=== PATIENT | female | born 2000 | race Caucasian/White ===

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

== ENCOUNTER → 2020-06-14 | Outpatient (CLI) | payer BC ==
[2020-06-14 09:51] LABS: Basophils % (A) 1 %; Eosinophils # (A) 0.1 k/uL (0-0.7); Eosinophils % (A) 1 %; HCT 40.6 % (34.0-46.0); HGB 13.4 gm/dL (11.4-16.0); Lymphocytes # (A) 1.8 k/uL (1.0-4.8); Lymphocytes % (A) 38 %; MCH 32.7 pg (25.0-35.0); MCHC 33.1 g/dL (31.0-37.0); MCV 98.8 fL (80.0-100.0); Mean Platelet Volume 8.3; Monocytes # (A) 0.2 k/uL (0-1.0); Monocytes % (A) 4 %; Neutrophils # (A) 2.6 k/uL (1.3-7.7); Neutrophils % (A) 55 %; Platelet Count 196 k/uL (150-450); RBC 4.11 m/uL (3.80-5.40); RDW 12.1 % (11.5-15.5); WBC 4.7 k/uL (4.0-11.0)
[2020-06-14 16:52] LABS: ALT 16 U/L (8-44); AST 22 U/L (13-35); African American GFR (CKD) 107.4 (60.0-200.0); Albumin/Globulin Ratio 2.35 (1.60-3.17); Alkaline Phosphatase 49 U/L (41-126); BUN/Creat Ratio 11.11 Ratio (12.00-20.00); C Reactive Protein <0.4 mg/dL (0.0-0.8); Calcium 9.5 mg/dL (8.7-10.3); Carbon Dioxide 27.5 mmol/L (21.6-31.8); Chloride 106 mmol/L (96-109); Chol/HDL Ratio 2.63; Cholesterol 213 mg/dL (0-200); Glucose 83 mg/dL (70-110); LDL Cholesterol,Calculated 119.2 mg/dL (0.0-131.0); Non-African American GFR(CKD) 92.7 (60.0-200.0); Potassium 3.9 mmol/L (3.5-5.5); Sodium 141 mmol/L (135-145); Total Bilirubin 0.7 mg/dL (0.3-1.2); Total Protein 6.7 g/dL (6.2-8.2)
[2020-06-14 17:27] LABS: Cardiolipin Ab IgG Interp NEGATIVE (NEGATIVE); Cardiolipin Ab IgM Interp NEGATIVE (NEGATIVE); Cardiolipin IgA Antibody 0.6 U/mL; Cardiolipin IgM Antibody 0.4 U/mL
[2020-06-14 18:16] LABS: Erythrocyte Sedimentation Rate 9 mm/Hr (0-20)
[2020-06-15 11:39] LABS: APTT 39 Sec(s) (<43); Dilute Russell Viper Venom 39 Sec(s) (<44)
[2020-06-16 12:09] LABS: Anti-Thrombin III Activity 106 % (79-109)
== END | disposition home or self-care (01) ==
LOC: LABWHC1 08:19
PROVIDERS: ATTEND Family Medicine
DX: G43.909 Migraine, unspecified, not intractable, without status migrainosus (principal); H53.129 Transient visual loss, unspecified eye; R47.1 Dysarthria and anarthria; Z30.41 Encounter for surveillance of contraceptive pills; Z82.49 Family history of ischemic heart disease and other diseases of the circulatory system; G83.21 Monoplegia of upper limb affecting right dominant side
CPT/HCPCS: 36415; 80053; 80061; 82103; 82607; 83090; 84443; 85025; 85300; 85613; 85652; 85730; 86140; 86147

== ENCOUNTER → 2021-06-18 | Outpatient (CLI) | payer BC ==
[2021-06-18 10:18] VITALS: BP 103/70; PULSE 63; RESP 18; TEMP 98.4
--- NOTE | 2021-06-18 10:26 | P.CONS ---
History of Present Illness - Reason for Consult Consult date: 06/18/21 - Chief Complaint Headache - History of Present Illness This is a 20-year-old lady with history of chronic episodic headaches. The pain is mostly behind her right I. It feels like throbbing pain. The patient gets this pain she reports having photophobia and nausea and vomiting. The patient has been happening on a daily basis until she was prescribed Topamax and Inderal and right now she gets that to once every 2 weeks. She also uses Imitrex orally with acute episode. She feels mild pain in the neck and shoulders and in the occipital area occasionally. The patient was referred to us by Dr. Hilton for a trial of occipital nerve block on the right side. Past Medical History Past Medical History: No Reported History Additional Past Medical History / Comment(s): MIGRAINES History of Any Multi-Drug Resistant Organisms: None Reported Past Surgical History: No Surgical Hx Reported Additional Past Surgical History / Comment(s): ORAL SX Past Anesthesia/Blood Transfusion Reactions: Family History of Problems w/ Anesthesia Additional Past Anesthesia/Blood Transfusion Reaction / Comm: DAD HAD PONV Smoking Status: Never smoker - Past Family History Father Family Medical History: Cancer, Pulmonary Embolus Medications and Allergies Home Medications Medication Instructions Recorded Confirmed Type Propranolol [Inderal] 40 mg PO DAILY 06/13/21 06/13/21 History Topiramate [Topamax] 25 mg PO HS 06/13/21 06/13/21 History Allergies Allergy/AdvReac Type Severity Reaction Status Date / Time Penicillins Allergy Rash/Hives Verified 06/13/21 11:13 Physical Exam Vitals: Vital Signs Temp Pulse Resp BP Pulse Ox 06/18/21 10:02 98.4 F 63 18 103/70 96 - Constitutional General appearance: average body habitus - EENT Eyes: PERRLA - Integumentary Integumentary: no calor, no cellulitis, no cyanotic, no decreased turgor, no flushed, no jaundiced, no normal, no normal turgor, no pale, no rash, no ulcer - Neurologic The patient has normal strength in the upper extremities bilaterally Mild tenderness in the trapezius muscle bilaterally in the cervical paravertebral musculature bilaterally Mild tenderness in the occipital area most of the right side Neurologic: CNII-XII intact - Musculoskeletal Musculoskeletal: gait normal, strength equal bilaterally - Psychiatric Psychiatric: A&O x's 3, appropriate affect, intact judgment & insight Results Results: The findings on brain computed tomography scan and brain CT angiography. Assessment and Plan Plan: This is a 20-year-old female with migraine headache and possible occipital neurology on the right side. The patient will be scheduled to have a trial of occipital nerve block on the right side however I think her treatment should be mostly medical by increasing the dose of her Topamax and probably Inderal. The medical management will be by Dr. Hilton. The procedure was explained to the patient and her mother and her questions were answered. I thank Dr. Hilton for the referral.
== END | disposition home or self-care (01) ==
LOC: PNWHC3 09:52
PROVIDERS: ATTEND Anesthesiology
DX: G43.909 Migraine, unspecified, not intractable, without status migrainosus (principal); Z88.0 Allergy status to penicillin; Z79.899 Other long term (current) drug therapy
CPT/HCPCS: 99211

== ENCOUNTER 2021-07-10 07:10 | Day surgery (SDC) | payer BC ==
[~2021-07-10 07:10] MED LIST: LACTATED RINGERS 1,000 ML IV SCH
[2021-07-10 07:42] VITALS: TEMP 97.5
[2021-07-10] MEDS ORDERED: LIDOCAINE 1% (10MG/ML) FOR IV START INTRADERMA ONE (07:49)
[2021-07-10] MEDS ORDERED: MIDAZOLAM 2 MG/2 ML VIAL ONE (08:03)
[2021-07-10] MEDS ORDERED: fentaNYL (PF) 50 MCG/ML 2 ML AMP ONE (08:03)
[2021-07-10] MEDS ORDERED: methylPREDNISolone ACETATE 40 MG/ML 1 ML VIAL ONE (08:03)
[2021-07-10] MEDS ORDERED: ROPIVACAINE 5MG/ML 20ML VIAL ONE (08:03)
--- NOTE | 2021-07-10 08:12 | P.PCN ---
Date of Procedure: 07/10/21 Procedure(s) Performed: Preoperative diagnoses= 1- Right Greater occipital neuralgia Postoperative diagnoses= same as preoperative diagnosis. Procedure= Right Greater occipital nerve block Anesthesia= moderate sedation with Versed 2 mg and fentanyl 50 micrograms . Estimated blood loss=minimal. Procedure indication= the patient had a history of severe chronic neck pain ,and headache, diagnosed with occipital neuralgia exam was positive for severe tenderness over the occipital nerve bilaterally, she will be a good candidate occipital nerve block, patient failed conservative management Procedure description= the patient was seen and identified in the preoperative holding area, risks and benefits and alternative of the procedure and possible complications discussed with the patient, and he agreed with the preceding, patient signed the consent, an IV was started, and vital signs were monitored and were stable throughout the procedure, patient was placed in the sitting position or table and the neck area was prepped and draped with a sterile fashion, vital signs were closely monitored during the procedure, 25-gauge needle advanced 1 inch lateral to the occipital protuberance on the right side, at the location of the right occipital nerve , then after negative aspiration for heme and CSF and there was no paresthesia during the injection, 6 ml of Robivacaine 0.5% and 80 mg of Depo-Medrol injected after negative aspiration, the needle removed. Patient tolerated the procedure well without any complication, The patient returned to supine position after the back was cleaned and a Band- Aid applied, the patient transported to recovery room in stable condition and he was monitored for 30 minutes before he was discharged home and then patient was reexamined before going home and patient was discharged in stable condition and patient will follow up with the pain clinic in a few weeks.
[2021-07-10 08:28] VITALS: RESP 20
[2021-07-10 08:36] VITALS: BP 114/67; PULSE 49
== END 2021-07-10 08:38 | disposition home or self-care (01) ==
LOC: ORPAIN 07:10
PROVIDERS: ATTEND Specialist
DX: M54.81 Occipital neuralgia (principal)
CPT/HCPCS: 64405; 81025; J2250; J1030; J3010; J2795

== ENCOUNTER → 2021-11-07 | Outpatient (CLI) | payer BC ==
[2021-11-07 11:47] VITALS: BP 131/97; PULSE 71; RESP 18; TEMP 98.3
--- NOTE | 2021-11-07 12:22 | P.PAINPG ---
Subjective Progress Note Date: 11/07/21 Principal diagnosis: Headaches Ms. Richardson is a 21 -year-old pleasant female came to the [facility] pain clinic for postprocedure evaluation . Patient has ongoing pain for many years. Patient had right occipital nerve block on 07/10/2021 patient had 100% pain relief with no headaches after the procedure. Patient describes pain is aching, throbbing type of pain. Patient rated pain levels are 0 out of 10 in severity. Activities making pain worse sometimes. Medications, resting, intervention procedures helping in relieving patient's pain. Patient pain some days better than others. Overall activities decreased secondary to headaches but after the intervention procedure she has no such issues with her activities. Denied any side effects with the medications. Denied any bowel or bladder problems at this time. Patient is using wheelchair as a shunt had a recent bunionectomy surgery on her right foot. Patient denies any suicidal or homicidal ideations intent or plan. Patient denies any auditory or visual hallucinations. Patient denied any red flag symptoms related to pain. Objective - Vital Signs Vital signs: Vital Signs Temp 98.3 F 11/07/21 11:33 Pulse 71 11/07/21 11:33 Resp 18 11/07/21 11:33 BP 131/97 11/07/21 11:33 Pulse Ox 97 11/07/21 11:33 - Exam General: Well-developed, well-nourished, no acute distress HEENT: Normocephalic, and atraumatic Neck: Supple, no neck swelling Psychiatric: Appropriate mood, and affect [employer]: No focal neurological deficits Musculoskeletal: Upper extremity: Normal strength, and range of motion. Sensation grossly intact Lower extremity: Normal strength, sitting in wheelchair secondary to recent surgery on her bunion - Constitutional Constitutional Comment(s): 13 point review of symptoms negative except as mentioned in history of present illness Assessment and Plan Assessment: Right-sided occipital neuralgia Plan: #1 Diagnoses, prognosis, and multiple treatment options including but not limited to physical therapy, interventional therapy, adjunct medication therapy, narcotic medication, and surgical options were discussed with the patient. And all questions were answered to the patient's satisfaction. #2 treatment plan agreement : Patient was thoroughly discussed regarding the treatment options, alternatives, and importance of exercises as tolerated. Patient clearly understood. #3 Patient was counseled on importance of regular exercise. Including elo chi, aerobic exercises as tolerated. Which helps for chronic pain, and overall well- being. #4 investigations: MAPS- reviewed , urine drug test-not done #5 diagnostic tests: None #6 consultation : None # 7 interventional procedures: Right occipital nerve block as needed in future. Procedure, complications, alternatives discussed with the patient. #8 medications None from the pain clinic # 9 recommended to use TENS unit's as needed #10 disposition: scheduled to follow up with pain clinic as needed Time with Patient: Less than 30 PQRS Measure Charge Sheet Measure #130: Documentation of Current Meds in Medical Chart: Patient's medications documented in chart Measure #226: Tobacco Use: Screen & Cessation Intervention: Pt not a tobacco user Measure #111: Pneumonia Vaccination: Pneumococcal vaccine NOT administered or previously given Measure #47: Advance Care Plan: Advance care planning discussed & documented, pt chose/unable to give Measure #412: Opioid Treatment Agreement: No documentation of signed opioid treatment agreement Measure #408: Opioid Therapy Follow-up Evaluation: Patient had NO f/u eval minimum every 3 months during opioid therapy Measure #317: Preventitive Care & Scrn High Bld Press & F/U: Normal blood pressure, f/u not required Measure #128: Body Mass Index (BMI) Screening & Follow-up: BMI documented within normal parameters Measure #131: Pain Assessment & Follow-up: Pain positive & plan documented Measure #431: Unhealthy Alcohol Use Preventative Care & Scrn: Patient not identified as an unhealthy alcohol user Mode of Arrival: Ambulatory, Wheelchair - Pain Location Occipital Non-Pharmacological Interventions: Ice, Inactivity Pharmacological Interventions: Block, Medication PQRS Narrative: Smoking Status Never smoker Blood Pressure 131/97 Pain Intensity [Occipital] 0 Scale Used Numeric (1 - 10) Hx Alcohol Use (MH) No Home Medications: Ambulatory Orders SUMAtriptan succinate [Imitrex] 25 mg PO DIRECTED PRN 07/06/21 Controlled Substance Measures - Controlled Substance Measures Is patient prescribed a controlled substance at discharge?: No
== END | disposition home or self-care (01) ==
LOC: PNWHC3 11:20
DX: M54.81 Occipital neuralgia (principal)
CPT/HCPCS: 99211

== ENCOUNTER → 2023-11-03 | Outpatient (CLI) | payer BC ==
--- NOTE | 2023-11-03 09:37 | USB ---
Reason for Exam: Clinical finding. Findings: The whole breast of the right breast, the periareolar of the right breast, the axilla of the right breast and the retroareolar of the right breast were scanned. A complete US of all four quadrants of the breast , axilla, and retro-areolar region were reviewed. No solid or cystic masses are identified. Dense tissue is present throughout. No duct ectasia or axillary lymphadenopathy. Overall Assessment: Negative, BI-RAD 1 Management: Screening Mammogram of both breasts at age 40. Unless there is a clinical indication to start sooner. Further clinical management of patient's intermittent right-sided nipple inversion. A clinical breast exam by your physician is recommended on an annual basis and results should be correlated with mammographic findings. This exam should not preclude additional follow-up of suspicious palpable abnormalities. Results were given to the patient verbally at the time of exam. Electronically signed and approved by: Trent Munguia M.D. Radiologist
== END | disposition home or self-care (01) ==
LOC: RADUSWWP 08:58
PROVIDERS: ATTEND Family Medicine
DX: N64.53 Retraction of nipple (principal)

== ENCOUNTER 2024-01-11 10:23 | Emergency (ER) | payer BC ==
[2024-01-11] MEDS: SODIUM CHLORIDE 0.9% 1,000 ML IV STA (11:06)
[2024-01-11 11:22] LABS: Basophils # (A) 0.1 k/uL (0-0.2); Basophils % (A) 0 %; Eosinophils # (A) 0.2 k/uL (0-0.7); Eosinophils % (A) 1 %; HCT 49.6 % (34.0-46.0); HGB 16.6 gm/dL (11.4-16.0); Lymphocytes # (A) 0.9 k/uL (1.0-4.8); Lymphocytes % (A) 4 %; MCHC 33.6 g/dL (31.0-37.0); MCV 92.4 fL (80.0-100.0); Mean Platelet Volume 8.8; Monocytes # (A) 0.6 k/uL (0-1.0); Monocytes % (A) 3 %; Neutrophils # (A) 19.8 k/uL (1.3-7.7); Neutrophils % (A) 92 %; Platelet Count 214 k/uL (150-450); RBC 5.37 m/uL (3.80-5.40); RDW 13.1 % (11.5-15.5); WBC 21.7 k/uL (3.8-10.6)
--- NOTE | 2024-01-11 11:34 | ED ---
Abdominal Pain HPI - General Chief Complaint: Abdominal Pain Stated Complaint: abd pain Time Seen by Provider: 01/11/24 10:35 Source: patient, RN notes reviewed Mode of arrival: ambulatory Limitations: no limitations - History of Present Illness Initial Comments: This is a 23-year-old female who presents to the emergency department for abdominal pain. States that she woke up with this around 3 AM. It is primarily in the middle to upper abdomen, worse on the right side. She has associated nausea, vomiting, and diarrhea. Denies any urinary symptoms. Also denies any history of similar pains in the past. Pain does not radiate anywhere. Denies any fevers or chills. MD Complaint: abdominal pain - Related Data Home Medications Medication Instructions Recorded Confirmed SUMAtriptan succinate [Imitrex] 25 mg PO DIRECTED PRN 07/06/21 11/02/21 Previous Rx's Medication Instructions Recorded Ketorolac [Toradol] 10 mg PO Q6HR PRN #15 tab 01/11/24 Ondansetron Odt [Zofran Odt] 4 mg PO Q8HR PRN #20 tab 01/11/24 Allergies Allergy/AdvReac Type Severity Reaction Status Date / Time Penicillins Allergy Rash/Hives Verified 01/11/24 10:28 Review of Systems ROS Statement: Those systems with pertinent positive or pertinent negative responses have been documented in the HPI. ROS Other: All systems not noted in ROS Statement are negative. Past Medical History Past Medical History: No Reported History Additional Past Medical History / Comment(s): MIGRAINES History of Any Multi-Drug Resistant Organisms: None Reported Past Surgical History: No Surgical Hx Reported Additional Past Surgical History / Comment(s): ORAL SX. PAIN CLINIC PROCEDURES. HAVING RT FOOT BUNIONECTOMY 11/05/21 Past Anesthesia/Blood Transfusion Reactions: Family History of Problems w/ Anesthesia Additional Past Anesthesia/Blood Transfusion Reaction / Comment(s): DAD HAD PONV Past Psychological History: No Psychological Hx Reported Smoking Status: Never smoker Past Alcohol Use History: Occasional Past Drug Use History: None Reported - Past Family History Father Family Medical History: Cancer, Pulmonary Embolus General Exam Limitations: no limitations General appearance: alert, in no apparent distress Head exam: Present: atraumatic, normocephalic, normal inspection Respiratory exam: Present: normal lung sounds bilaterally. Absent: respiratory distress, wheezes, rales, rhonchi, stridor Cardiovascular Exam: Present: regular rate, normal rhythm, normal heart sounds. Absent: systolic murmur, diastolic murmur, rubs, gallop, clicks GI/Abdominal exam: Present: soft, tenderness (RUQ). Absent: distended Neurological exam: Present: alert, oriented X3, CN II-XII intact Psychiatric exam: Present: normal affect, normal mood Skin exam: Present: warm, dry, intact, normal color. Absent: rash Course Vital Signs 01/11/24 01/11/24 01/11/24 10:26 11:09 12:02 Temperature 98.4 F 98.1 F Pulse Rate 118 H 87 78 Respiratory 22 18 Rate Blood Pressure 118/70 110/70 O2 Sat by Pulse 97 98 99 Oximetry 01/11/24 14:24 Temperature 98.1 F Pulse Rate 99 Respiratory 18 Rate Blood Pressure 108/66 O2 Sat by Pulse 99 Oximetry Medical Decision Making - Medical Decision Making This is a 23 year old female who presents to the emergency department for abdominal pain. Was pt. sent in by a medical professional or institution? @ -No Did you speak to anyone other than the patient for history? @ -No Did you review nursing and triage notes? @ -Yes, and I agree, it is accurate with regards to the patient's symptoms. Were old charts reviewed? @ -No Differential Diagnosis? @ -Differential Abdominal Pain Women: Appendicitis, Cholecystitis, diverticulosis, ischemic bowel, pancreatitis, hepatitis, UTI, gastroenteritis, AAA, incarcerated hernia, bowel obstruction, constipation, inflammatory bowel, hepatitis, peptic ulcer disease, splenic infarction, perforated viscus, vulvitis, ovarian torsion, PID, kidney stone, placenta abruption, this is not meant to be an all-inclusive list EKG interpreted by me (3pts min.)? @ -Not obtained X-rays interpreted by me (1pt min.)? @ -Not obtained CT interpreted by me (1pt min.)? @ -CT scan of the abdomen and pelvis obtained. My interpretation identifies no evidence of bowel wall thickening or free air. U/S interpreted by me (1pt. min.)? @ -Gallbladder US obtained. My interpretation identifies no evidence of cholelithiasis. What testing was considered but not performed? (CT, X-rays, U/S, labs)? Why? @ -None What meds were considered but not given? Why? @ -None Did you discuss the management of the patient with other professionals? @ -No Did you reconcile home meds? @ -No Was smoking cessation discussed for >3mins.? @ -No Was critical care preformed (if so, how long)? @ -No Were there social determinants of health that impacted care today? How? (Homelessness, low income, unemployed, alcoholism, drug addiction, transportation, low edu. Level, literacy, decrease access to med. care, senior living, rehab)? @ -No Was there de-escalation of care discussed even if they declined? (Discuss DNR or withdrawal of care, Hospice)? @ -No What co-morbidities impacted this encounter? (DM, HTN, Smoking, COPD, CAD, Cancer, CVA, Hep., AIDS, mental health diagnosis, sleep apnea, morbid obesity)? @ -None Was patient admitted / discharged? @ -Discharged. Lab work obtained revealing leukocytosis and elevated lactic acid. Gallbladder US reveals no evidence of cholelithiasis or other acute irr egularities. Given the severity of the patient's symptoms and leukocytosis, CT scan of the abdomen/pelvis was obtained for further evaluation. This also revealed no acute process. Her symptoms were well controlled with IV fluids, Toradol, Protonix, and Zofran. She was tolerating oral intake afterwards without any difficulty. Discussed that her symptoms may be related to a viral gastroenteritis. However, given that she did have some localization to the right upper quadrant, discussed that she may have problems with her gallbladder function, in which case she would need a HIDA scan for further evaluation. Prescription for Toradol and Zofran provided with dosing instructions reviewed. Patient discharged home in stable condition and advised to slowly advance her diet as tolerated and remain well hydrated. Undiagnosed new problem with uncertain prognosis? @ -None Drug Therapy requiring intensive monitoring for toxicity (Heparin, Nitro, Insulin, Cardizem)? @ -None Were any procedures done? @ -None Diagnosis/symptom? @ -Abdominal pain, nausea/vomiting Acute, or Chronic, or Acute on Chronic? @ -Acute Uncomplicated (without systemic symptoms) or Complicated (systemic symptoms)? @ -Uncomplicated Side effects of treatment? @ -None Exacerbation, Progression, or Severe Exacerbation] @ -Not applicable Poses a threat to life or bodily function? @ -No Return precautions reviewed in depth, the patient is instructed to return to the emergency department with any new, worsening, or concerning symptoms. Patient verbalized understanding. This case was discussed in detail with the attending ED physician, Dr. Caldwell. Presentation, findings, and treatment plan discussed in detail as well. - Lab Data Result diagrams: 01/11/24 11:04 01/11/24 11:04 Lab Results 01/11/24 01/11/24 01/11/24 Range/Units 11:04 11:04 11:04 WBC 21.7 H (3.8-10.6) k/uL RBC 5.37 (3.80-5.40) m/uL Hgb 16.6 H (11.4-16.0) gm/dL Hct 49.6 H (34.0-46.0) % MCV 92.4 (80.0-100.0) fL MCH 31.0 (25.0-35.0) pg MCHC 33.6 (31.0-37.0) g/dL RDW 13.1 (11.5-15.5) % Plt Count 214 (150-450) k/uL MPV 8.8 Neutrophils % 92 % Lymphocytes % 4 % Monocytes % 3 % Eosinophils % 1 % Basophils % 0 % Neutrophils # 19.8 H (1.3-7.7) k/uL Lymphocytes # 0.9 L (1.0-4.8) k/uL Monocytes # 0.6 (0-1.0) k/uL Eosinophils # 0.2 (0-0.7) k/uL Basophils # 0.1 (0-0.2) k/uL Sodium 138 (137-145) mmol/L Potassium 4.6 (3.5-5.1) mmol/L Chloride 105 (98-107) mmol/L Carbon Dioxide 18 L (22-30) mmol/L Anion Gap 15 mmol/L BUN 13 (7-17) mg/dL Creatinine 0.65 (0.52-1.04) mg/dL Est GFR (CKD-EPI)AfAm >90 (>60 ml/min/1.73 sqM) Est GFR (CKD-EPI)NonAf >90 (>60 ml/min/1.73 sqM) Glucose 111 H (74-99) mg/dL Lactic Ac Sepsis Rflx Plasma Lactic Acid Eugene 2.8 H* (0.7-2.0) mmol/L Calcium 9.9 (8.4-10.2) mg/dL Total Bilirubin 0.9 (0.2-1.3) mg/dL AST 29 (14-36) U/L ALT 20 (4-34) U/L Alkaline Phosphatase 80 (38-126) U/L Total Protein 7.6 (6.3-8.2) g/dL Albumin 4.8 (3.5-5.0) g/dL Amylase 54 (30-110) U/L Lipase 97 (23-300) U/L HCG, Qual Not Detected 01/11/24 Range/Units 11:47 WBC (3.8-10.6) k/uL RBC (3.80-5.40) m/uL Hgb (11.4-16.0) gm/dL Hct (34.0-46.0) % MCV (80.0-100.0) fL MCH (25.0-35.0) pg MCHC (31.0-37.0) g/dL RDW (11.5-15.5) % Plt Count (150-450) k/uL MPV Neutrophils % % Lymphocytes % % Monocytes % % Eosinophils % % Basophils % % Neutrophils # (1.3-7.7) k/uL Lymphocytes # (1.0-4.8) k/uL Monocytes # (0-1.0) k/uL Eosinophils # (0-0.7) k/uL Basophils # (0-0.2) k/uL Sodium (137-145) mmol/L Potassium (3.5-5.1) mmol/L Chloride (98-107) mmol/L Carbon Dioxide (22-30) mmol/L Anion Gap mmol/L BUN (7-17) mg/dL Creatinine (0.52-1.04) mg/dL Est GFR (CKD-EPI)AfAm (>60 ml/min/1.73 sqM) Est GFR (CKD-EPI)NonAf (>60 ml/min/1.73 sqM) Glucose (74-99) mg/dL Lactic Ac Sepsis Rflx Y Plasma Lactic Acid Eugene (0.7-2.0) mmol/L Calcium (8.4-10.2) mg/dL Total Bilirubin (0.2-1.3) mg/dL AST (14-36) U/L ALT (4-34) U/L Alkaline Phosphatase (38-126) U/L Total Protein (6.3-8.2) g/dL Albumin (3.5-5.0) g/dL Amylase (30-110) U/L Lipase (23-300) U/L HCG, Qual - Radiology Data Radiology results: report reviewed, image reviewed Disposition Clinical Impression: Nausea and vomiting, Abdominal pain Disposition: HOME SELF-CARE Instructions (If sedation given, give patient instructions): Acute Nausea and Vomiting (ED), Abdominal Pain (ED) Additional Instructions: Return to the emergency department with any new, worsening, or concerning symptoms. Take the Toradol with Tylenol as needed for pain relief. If you choose to take the Toradol, do not take any other anti-inflammatories such as ibuprofen, take one or the other. You can take the Zofran up to every 8 hours as needed for nausea and vomiting. Slowly advance your diet as tolerated and remain well-hydrated. If symptoms do not improve or if this becomes a recurrent issue, you may need a HIDA scan for further evaluation of your gallbladder function. Follow up with your primary care provider in 1-2 days. Prescriptions: Ketorolac [Toradol] 10 mg PO Q6HR PRN #15 tab PRN Reason: Nausea And Vomiting Ondansetron Odt [Zofran Odt] 4 mg PO Q8HR PRN #20 tab PRN Reason: Nausea And Vomiting Is patient prescribed a controlled substance at d/c from ED?: No Referrals: Brianda Hammond MD [Primary Care Provider] - 1-2 days Time of Disposition: 14:16
[2024-01-11 11:41] LABS: ALT 20 U/L (4-34); AST 29 U/L (14-36); African American GFR (CKD) >90 (>60 ml/min/1.73 sqM); Albumin 4.8 g/dL (3.5-5.0); Alkaline Phosphatase 80 U/L (38-126); Amylase 54 U/L (30-110); Anion Gap 15 mmol/L; Blood Urea Nitrogen 13 mg/dL (7-17); Calcium 9.9 mg/dL (8.4-10.2); Carbon Dioxide 18 mmol/L (22-30); Chloride 105 mmol/L (98-107); Glucose 111 mg/dL (74-99); Lipase 97 U/L (23-300); Non-African American GFR(CKD) >90 (>60 ml/min/1.73 sqM); Potassium 4.6 mmol/L (3.5-5.1); Sodium 138 mmol/L (137-145); Total Bilirubin 0.9 mg/dL (0.2-1.3); Total Protein 7.6 g/dL (6.3-8.2)
[2024-01-11] MEDS: PANTOPRAZOLE 40 MG/10 ML VIAL IVP STA (11:50)
[2024-01-11] MEDS: KETOROLAC 15 MG/ML 1 ML VIAL IVP STA (11:50)
[2024-01-11] MEDS: ONDANSETRON 4 MG/2 ML VIAL IVP STA ×2 (11:51→14:01)
[2024-01-11 12:31] VITALS: RESP 18; TEMP 98.1
--- NOTE | 2024-01-11 12:49 | US ---
EXAMINATION TYPE: US gallbladder DATE OF EXAM: 01/11/2024 COMPARISON: NONE CLINICAL INDICATION: Female, 23 years old with history of RUQ pain; Abdominal pain, nausea and vomiti ng TECHNIQUE: Multiple sonographic images of the right upper quadrant are obtained. FINDINGS: EXAM MEASUREMENTS: Liver Length: 16.7 cm Gallbladder Wall: 0.2 cm CBD: 0.3 cm Right Kidney: 11.7 x 3.7 x 4.0 cm Pancreas: limited evaluation due to overlying bowel gas Liver: appears wnl Gallbladder: no evidence of stones Evidence for sonographic Brown's sign: no CBD: wnl Right Kidney: no evidence of hydronephrosis or mass IMPRESSION: No evidence for acute process.
[2024-01-11 13:00] LABS: HCG,Qualitative Serum Not Detected
--- NOTE | 2024-01-11 13:51 | CT ---
EXAMINATION TYPE: CT abdomen pelvis w con CT DLP: 677.3 mGycm, Automated exposure control for dose reduction was used. DATE OF EXAM: 01/11/2024 1:41 PM COMPARISON: None CLINICAL INDICATION:Female, 23 years old with history of Right sided abdominal pain; ABD PAIN TECHNIQUE: Axial CT abdomen pelvis w con;Sagittal and coronal reformats were created on a separate w orkstation. Contrast used:100 mL of Isovue 300 with IV Contrast, (none if empty) Oral contrast used: without Oral Contrast (none if empty) FINDINGS: LOWER CHEST: Unremarkable ABDOMEN LIVER: Unremarkable GALLBLADDER AND BILE DUCTS: Unremarkable. PANCREAS: Unremarkable. SPLEEN: Unremarkable. ADRENAL GLANDS: Unremarkable. KIDNEYS AND URETERS: No evidence of hydronephrosis or renal calculus. The ureters are unremarkable. PELVIS BLADDER: Unremarkable REPRODUCTIVE: There is a pessary ring noted in the degenerative. ABDOMEN & PELVIS STOMACH AND BOWEL: No evidence of bowel obstruction. Appendix is visualized and normal. PERITONEUM/RETROPERITONEUM: No evidence of pneumoperitoneum or free fluid. VASCULATURE: No evidence of aortic aneurysm. MUSCULOSKELETAL: No acute osseous abnormalities LYMPH NODES: No gross evidence for lymphadenopathy. SOFT TISSUE/ABDOMINAL WALL: Unremarkable IMPRESSION: No evidence for acute abdominal process. The appendix is visualized and normal. No obstructive uropat hy.
[2024-01-11] MEDS: IBUPROFEN 600 MG STARTER PACK 4 TAB BTL PO STA (14:21)
[2024-01-11] MEDS: ONDANSETRON 4 MG ODT STARTER PACK 2 TAB BTL PO STA (14:21)
[2024-01-11 14:30] VITALS: BP 108/66; PULSE 99
== END 2024-01-11 14:27 | disposition home or self-care (01) ==
LOC: EC 10:23
DX: R10.11 Right upper quadrant pain (principal); R11.2 Nausea with vomiting, unspecified; D72.829 Elevated white blood cell count, unspecified; R74.02 Elevation of levels of lactic acid dehydrogenase [LDH]; Z88.0 Allergy status to penicillin
CPT/HCPCS: 99284; 96374; 96375 ×2; 96376; 96361; 36415; 80053; 82150; 83605; 83690; 85025; 84703; 76705; 74177; J2405; J1885; S0119; C9113; Q9967

== ENCOUNTER → 2024-01-22 | Outpatient (CLI) | payer BC ==
--- NOTE | 2024-01-22 22:36 | NM ---
EXAMINATION TYPE: NM hepatobiliary w EF DATE OF EXAM: 01/22/2024 COMPARISON: Correlation CT 01/11/2024 CLINICAL INDICATION: Female, 23 years old with history of R10.11 RIGHT UPPER QUADRANT PAIN; TECHNIQUE: After the intravenous administration of 4.5 mCi Tc 99m Mebrofenin hepatobiliary scintigrap hy is performed. Immediate images post injection. FINDINGS: There is satisfactory initial accumulation of tracer by the liver. The gallbladder is visualized wit hin 4 minutes. The small bowel activity is noted after one hour once oral Ensure has been administer ed. At one hour 8 ounces of oral ensure plus is given to mimic CCK and gallbladder ejection fraction is calculated at 71 %, in the normal range. IMPRESSION: No scintigraphic evidence for acute/chronic cholecystitis or biliary dyskinesia.
== END | disposition home or self-care (01) ==
LOC: RADNMMAIN 06:45
PROVIDERS: ATTEND Family Medicine
DX: R10.11 Right upper quadrant pain (principal); R10.13 Epigastric pain; R11.10 Vomiting, unspecified
CPT/HCPCS: 78226; A9537

== ENCOUNTER → 2025-04-25 | Outpatient (CLI) | payer BC ==
--- NOTE | 2025-04-25 07:31 | USB ---
Reason for Exam: Clinical finding. Technique: Method: Targeted. Findings: The lower outer quadrant of the left breast, the axilla of the left breast and the retroareolar of the left breast were scanned. Technique utilized:US breast limited LT Image; Ultrasound imaging of: Area of concern, retroareolar region and axilla. No evidence for organizing fluid collection or mass. Overall Assessment: Negative, BI-RAD 1 Management: Screening Mammogram of both breasts at age 40. A clinical breast exam by your physician is recommended on an annual basis and results should be correlated with mammographic findings. This exam should not preclude additional follow-up of suspicious palpable abnormalities. Results were given to the patient verbally at the time of exam. [facility], , 04/25/2025 7:28 AM. Electronically signed and approved by: Jaison Rose DO
== END | disposition home or self-care (01) ==
LOC: RADUSWWP 06:52
PROVIDERS: ATTEND Obstetrics & Gynecology Obstetrics
DX: N64.4 Mastodynia (principal); N63.20 Unspecified lump in the left breast, unspecified quadrant